=== PATIENT | female | born 2005 | race Caucasian/White ===

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

== ENCOUNTER → 2024-02-23 | Outpatient (CLI) | payer OTHER ==
[2024-02-23 18:46] LABS: BASOPHILS ABSOLUTE AUTO 0.04 K/mm3 (0.00-0.23); BASOPHILS PERCENT AUTO 0 % (0-2); EOSINOPHILS ABSOLUTE AUTO 0.09 K/mm3 (0.00-0.68); EOSINOPHILS PERCENT AUTO 1 % (0-6); Hematocrit 32.7 % (33.0-51.0); Hemoglobin 11.1 g/dL (11.5-16.0); IMMATURE GRAN ABSOLUTE AUTO 0.05 K/mm3 (0.00-0.10); IMMATURE GRAN PERCENT AUTO 0 % (0-1); LYMPHOCYTES ABSOLUTE AUTO 2.11 K/mm3 (0.84-5.20); LYMPHOCYTES PERCENT AUTO 18 % (21-46); MONOCYTES ABSOLUTE AUTO 0.77 K/mm3 (0.16-1.47); MONOCYTES PERCENT AUTO 7 % (4-13); Mean Corpuscular HGB 31.5 pg (26.0-34.0); Mean Corpuscular HGB Conc 33.9 g/dL (31.5-36.5); Mean Corpuscular Volume 93 fL (80-100); Mean Platelet Volume 10.3 fL (9.1-12.4); NEUTROPHILS ABSOLUTE AUTO 8.78 K/mm3 (1.96-9.15); NEUTROPHILS PERCENT AUTO 74 % (41-73); Platelet Count 306 K/mm3 (150-400); RDW Coefficient Variation 12.5 % (11.7-14.2); RDW Standard Deviation 42.2 fL (35.1-46.3); Red Blood Cell Count 3.52 M/mm3 (3.80-5.20); White Blood Cell Count 11.84 K/mm3 (4.00-11.30)
== END | disposition home or self-care (01) ==
LOC: LAB SHORT 17:39 → LAB 17:39
PROVIDERS: Obstetrics & Gynecology
DX: O99.322 Drug use complicating pregnancy, second trimester (principal); F12.90 Cannabis use, unspecified, uncomplicated
CPT/HCPCS: 82950; 85025

== ENCOUNTER → 2024-04-26 | Outpatient (CLI) | payer OTHER | LOC: LAB 15:13 → LAB SHORT 15:13 | DX: O09.92 Supervision of high risk pregnancy, unspecified, second trimester (principal); O99.320 Drug use complicating pregnancy, unspecified trimester; F12.90 Cannabis use, unspecified, uncomplicated; Z3A.00 Weeks of gestation of pregnancy not specified | CPT/HCPCS: 87081; 87150 ==

== ENCOUNTER → 2024-05-03 | Outpatient (CLI) | payer OTHER ==
[~2024-05-03] MED LIST changes: +IBUP800 PO; +PRENATAL TABLE1 EAC2 PO
[2024-05-03 17:48] LABS: Source, Urine Voided
[2024-05-03 18:37] LABS: Appearance, Urine Hazy (Clear); Bilirubin, Urine Neg (Neg); Blood, Urine 1+ (Neg); Color, Urine Yellow (P-Yellow); Glucose Qualitative, Urine Neg (Neg); Ketones, Urine Neg (Neg); Leukocyte Esterase, Urine 3+ (Neg); Nitrite, Urine Pos (Neg); Protein, Urine 1+ (Neg); Urobilinogen, Urine NORM (Normal)
[2024-05-03 18:54] LABS: Bacteria Many /hpf; Mucus Light (0-Heavy); Red Blood Cells, Urine 0-2 /hpf (0-2); Squamous Epithelial Cells Mod /hpf (Few)
== END ==
LOC: LAB 17:46 → LAB SHORT 17:46
PROVIDERS: Advanced Practice Midwife
DX: R82.90 Unspecified abnormal findings in urine (principal)
CPT/HCPCS: 81001; 87086

== ENCOUNTER 2024-06-09 20:20 | Emergency (ER) | payer OTHER ==
[~2024-06-09] VITALS: Ht 160 cm; Wt 58.5 kg
[2024-06-09 21:05] LABS: BASOPHILS ABSOLUTE AUTO 0.06 K/mm3 (0.00-0.23); BASOPHILS PERCENT AUTO 1 % (0-2); EOSINOPHILS ABSOLUTE AUTO 0.19 K/mm3 (0.00-0.68); EOSINOPHILS PERCENT AUTO 3 % (0-6); Hematocrit 39.6 % (33.0-51.0); Hemoglobin 13.4 g/dL (11.5-16.0); IMMATURE GRAN ABSOLUTE AUTO 0.01 K/mm3 (0.00-0.10); IMMATURE GRAN PERCENT AUTO 0 % (0-1); LYMPHOCYTES ABSOLUTE AUTO 2.61 K/mm3 (0.84-5.20); LYMPHOCYTES PERCENT AUTO 43 % (21-46); MONOCYTES ABSOLUTE AUTO 0.42 K/mm3 (0.16-1.47); MONOCYTES PERCENT AUTO 7 % (4-13); Mean Corpuscular HGB 29.5 pg (26.0-34.0); Mean Corpuscular HGB Conc 33.8 g/dL (31.5-36.5); Mean Corpuscular Volume 87 fL (80-100); Mean Platelet Volume 9.1 fL (9.1-12.4); NEUTROPHILS ABSOLUTE AUTO 2.85 K/mm3 (1.96-9.15); NEUTROPHILS PERCENT AUTO 46 % (41-73); Platelet Count 321 K/mm3 (150-400); RDW Coefficient Variation 13.1 % (11.7-14.2); Red Blood Cell Count 4.54 M/mm3 (3.80-5.20); White Blood Cell Count 6.14 K/mm3 (4.00-11.30)
[2024-06-09 21:23] LABS: Albumin, Blood 3.7 g/dL (3.4-5.0); Albumin/Globulin Ratio 1.1 (0.8-1.8); Bilirubin, Total 0.2 mg/dL (0.1-1.0); Bun/Creatinine Ratio 15.3 (12.0-20.0); Calcium, Blood 9.2 mg/dL (8.5-10.1); Creatinine, Blood 0.65 mg/dL (0.40-1.00); Globulin, Blood 3.4 g/dL (2.2-4.0); Potassium, Blood 3.6 mmol/L (3.5-5.5); Total Protein, Blood 7.1 g/dL (6.4-8.2)
[2024-06-10] MEDS ORDERED: MedroxyPROGESTERone Acetate 10 MG Tab PO ONE (00:15)
[2024-06-10] MEDS ORDERED: MEDR10 PO (00:23)
[2024-06-10 00:40] VITALS: BP 104/74
== END 2024-06-10 01:21 | disposition home or self-care (01) ==
LOC: ER 20:20
PROVIDERS: Student in an Organized Health Care Education/Training Program
DX: O72.1 Other immediate postpartum hemorrhage (principal); Z79.899 Other long term (current) drug therapy
CPT/HCPCS: 76830; 76856; 80053; 85025; 86850; 86900; 86901; 99284-25; A9270

== ENCOUNTER 2024-10-01 20:50 | Emergency (ER) | payer OTHER ==
[~2024-10-01] VITALS: Ht 162.6 cm; Wt 56.7 kg
[~2024-10-01 20:50] MED LIST changes: +MEDR10 PO
[2024-10-01 20:56] VITALS: BP 118/96
[2024-10-01] MEDS ORDERED: Ondansetron 4 MG SoluTab SL ONE (21:00)
[2024-10-01] MEDS ORDERED: Oseltamivir Phosphate 75 MG Cap PO ONE (21:00)
[2024-10-01] MEDS ORDERED: OSEL75CA PO (21:02)
[2024-10-01] MEDS ORDERED: ONDA4ODT MM (21:02)
== END 2024-10-01 21:14 | disposition home or self-care (01) ==
LOC: ER 20:50
DX: J10.1 Influenza due to other identified influenza virus with other respiratory manifestations (principal); F41.9 Anxiety disorder, unspecified; Z79.83 Long term (current) use of bisphosphonates; Z79.3 Long term (current) use of hormonal contraceptives
CPT/HCPCS: 99282; A9270